=== PATIENT | female | born 1990 | race Caucasian/White ===

== ENCOUNTER 2016-07-19 15:17 | Emergency (ER) | payer OTHER ==
[2016-07-19 16:09] LABS: HEMOGLOBIN 14.3 gm/dl (12.3-15.3); RED BLOOD COUNT 4.63 M/UL (4.00-5.10); WHITE BLOOD COUNT 14.1 K/UL (4.5-11.0)
[2016-07-19 16:27] LABS: BUN/CREATININE RATIO 20 (0-10)
== END 2016-07-19 19:20 | disposition short-term general hospital (02) ==
LOC: ER1 15:17
PROVIDERS: Emergency Medicine
DX: S30.1XXA Contusion of abdominal wall, initial encounter (principal); S99.911A Unspecified injury of right ankle, initial encounter; S19.9XXA Unspecified injury of neck, initial encounter; F17.210 Nicotine dependence, cigarettes, uncomplicated; R42 Dizziness and giddiness; V49.40XA Driver injured in collision with unspecified motor vehicles in traffic accident, initial encounter; Z88.0 Allergy status to penicillin
CPT/HCPCS: 36415; 70450; 71260; 72125; 73610; 80053; 81001; 84703; 85025; 96361; 96374; 96375; 99285; J2270; J2405; J7050; Q9962

== ENCOUNTER → 2021-05-07 | Outpatient (CLI) | payer BC ==
[2021-05-07 09:55] LABS: HEMOGLOBIN 14.3 gm/dl (12.3-15.3); RED BLOOD COUNT 4.63 M/UL (4.00-5.10); WHITE BLOOD COUNT 9.6 K/UL (4.5-11.0)
== END ==
LOC: OPSV2 08:00
PROVIDERS: Obstetrics & Gynecology
DX: Z01.812 Encounter for preprocedural laboratory examination (principal); N83.202 Unspecified ovarian cyst, left side
CPT/HCPCS: 85025

== ENCOUNTER → 2021-05-14 | Day surgery (SDC) | payer BC ==
[~2021-05-14] MED LIST: COLACE 100MG C100 MG PO; HYDROCODON-ACE1 EAC4 PO; IBUPROFEN600 MG PO
== END | disposition home or self-care (01) ==
LOC: OR 07:25
DX: D39.12 Neoplasm of uncertain behavior of left ovary (principal); Z20.822 Contact with and (suspected) exposure to COVID-19; Z88.0 Allergy status to penicillin; Z87.891 Personal history of nicotine dependence
CPT/HCPCS: 84702; J1170; J2001; J2250; J2704; J3010; J7120